=== PATIENT | male | born 1950 | race Caucasian/White ===

== ENCOUNTER 2020-06-21 14:15 | Outpatient (CLI) | payer MEDICARE, SELFPAY ==
[2020-06-21 10:00] VITALS: PULSE 68; O2SAT 90
[2020-06-21 10:05] VITALS: PULSE 84; O2SAT 86
[2020-06-21 10:10] VITALS: PULSE 84; O2SAT 87
[2020-06-21 10:15] VITALS: PULSE 89; O2SAT 88
[2020-06-21 10:20] VITALS: PULSE 92; O2SAT 90
[2020-06-21 10:35] VITALS: PULSE 64; O2SAT 90
--- NOTE | 2020-06-21 17:45 | WPDPFTINT ---
PFT Procedure Performed PFT Procedure Performed Plethysmography (Lung Vol) Diffusing Cap (DLCO) Spirometry w/o Bronchodil PFT Interpretation This is a pulmonary function test with spirometry, plethysmography and diffusing capacity. The test was performed and results interpreted in accordance with the 2019 and 2005 ATS/ERS Task Force guidelines respectively using the Global Lung Function Initiative-2012 reference equations. Patient demonstrated good effort and cooperation. Reproducibility criteria were met. The quality of the spirometry maneuver was Grade A. Findings: Spirometry: There is decreased maximal expiratory airflow at low lung volumes with a mildly concave expiratory flow tracing. The FVC is 4.34 L, 89% predicted. The FEV1 is 2.90 L, 80% predicted. The FEV1: FVC ratio 67%. Plethysmography: The total lung capacity is 8.14 L, 104% predicted. The functional residual capacity is 3.52 L, 84% predicted. The residual volume is 3.27 L, 122% predicted. Diffusing capacity: The absolute diffusion capacity is 24.2, 87% predicted. The diffusion capacity corrected for alveolar volume is 3.91, 105% predicted. Impression: There is a mild obstructive abnormality with a normal FEV1. The lung volumes are normal. The diffusing capacity is normal. There are no prior studies for comparison
--- NOTE | 2020-06-30 10:51 | HOMEO2EVAL ---
Evaluation was performed at [facility]
== END 2020-06-21 14:16 | disposition home or self-care (01) ==
LOC: ANHPFT 07-14 14:17
PROVIDERS: PCP Internal Medicine
DX: R06.02 Shortness of breath (principal); R94.2 Abnormal results of pulmonary function studies
CPT/HCPCS: 94375; 94618; 94726; 94729